=== PATIENT | female | born 1960 | race Caucasian/White ===

== ENCOUNTER → 2017-04-21 | Day surgery (SDC) | payer OTHER ==
--- NOTE | 2017-04-22 14:49 | PATH ---
Surgical Pathology Report Patient Name: PARAMJIT LEON [facility]. Rec. #: [id number] /Age/Gender: 1960 (Age: 56) / F Account: [id number] Location: [facility] Taken: 04/21/2017 Received: 04/21/2017 Reported: 04/22/2017 Physicians: Allyson Stein M.D. Specimen(s) Received A: LEFT BREAST SPECIMEN -SITE 1- UPPER OUTER QUADRANT POSTERIOR WITH CALCIFICATIONS B: LEFT BREAST SPECIMEN -SITE 1- UPPER OUTER QUADRANT POSTERIOR WITHOUT CALCIFICATIONS C: LEFT BREAST SPECIMEN -SITE 2- UPPER OUTER QUADRANT ANTERIOR WITH CALCIFICATIONS D: LEFT BREAST SPECIMEN -SITE 2- UPPER OUTER QUADRANT ANTERIOR WITHOUT CALCIFICATIONS E: RIGHT BREAST SPECIMEN UPPER INNER QUADRANT WITH CALCIFICATIONS F: RIGHT BREAST SPECIMEN UPPER INNER QUADRANT WITHOUT CALCIFICATIONS Clinical History Nonpalpable lesion Mammographic findings: Microcalcification, suspicious Final Diagnosis A. LEFT BREAST, UPPER OUTER QUADRANT POSTERIOR WITH CALCIFICATION, STEREOTACTIC NEEDLE CORE BIOPSY: BENIGN BREAST TISSUE WITH FIBROCYSTIC CHANGES INCLUDING USUAL DUCTAL HYPERPLASIA (UDH), STROMAL FIBROSIS, DUCTAL DILATATION, CYSTIC APOCRINE METAPLASIA, AND ASSOCIATED CALCIFICATION. CHANGES CONSISTENT WITH RUPTURED CYST WITH ASSOCIATED FOREIGN BODY REACTION AND CALCIFICATION PRESENT. B. LEFT BREAST, UPPER OUTER QUADRANT POSTERIOR WITHOUT CALCIFICATION, STEREOTACTIC NEEDLE CORE BIOPSY: COMPLEX SCLEROSING LESION/RADIAL SCAR ARISING IN A BACKGROUND OF FIBROCYSTIC CHANGES INCLUDING USUAL DUCTAL HYPERPLASIA (UDH), STROMAL FIBROSIS, DUCTAL DILATATION, CYSTIC METAPLASIA, AND RARE CALCIFICATION. C. LEFT BREAST, UPPER OUTER QUADRANT ANTERIOR WITH CALCIFICATION, STEREOTACTIC NEEDLE CORE BIOPSY: FOCAL ATYPICAL LOBULAR HYPERPLASIA (ALH) ARISING IN A BACKGROUND OF FIBROCYSTIC CHANGES INCLUDING USUAL DUCTAL HYPERPLASIA (UDH), STROMAL FIBROSIS, DUCTAL DILATATION, CYSTIC METAPLASIA, AND ASSOCIATED CALCIFICATION. D. LEFT BREAST, UPPER OUTER QUADRANT ANTERIOR WITHOUT CALCIFICATION, STEREOTACTIC NEEDLE CORE BIOPSY: BENIGN BREAST TISSUE WITH FIBROCYSTIC CHANGES INCLUDING STROMAL FIBROSIS AND DUCTAL DILATATION. AREA CONSISTENT WITH CYST RUPTURE WITH ASSOCIATED CALCIFICATION PRESENT. E. RIGHT BREAST, UPPER INNER QUADRANT WITH CALCIFICATION, STEREOTACTIC NEEDLE CORE BIOPSY: BENIGN BREAST TISSUE WITH FIBROCYSTIC CHANGES INCLUDING USUAL DUCTAL HYPERPLASIA (UDH), COLUMNAR CELL CHANGE, STROMAL FIBROSIS, DUCTAL DILATATION, AND RARE CALCIFICATION. F. RIGHT BREAST, UPPER INNER QUADRANT WITHOUT CALCIFICATION, STEREOTACTIC NEEDLE CORE BIOPSY: BENIGN BREAST TISSUE FIBROCYSTIC CHANGES INCLUDING USUAL DUCTAL HYPERPLASIA (UDH), STROMAL FIBROSIS, DUCTAL DILATATION, AND ASSOCIATED CALCIFICATION. Comment: Recommend correlation with clinical and radiologic findings and follow up as clinically indicated. Electronically Signed Elbert Eng M.D. Gross Description A. Received in formalin labeled "left breast with calcifications site 1 upper outer quadrant posterior," are 2 winkler, cylindrical portions of fibroadipose tissue averaging 0.9 cm in length and 0.3 cm in diameter. The specimens are submitted in toto in one cassette. B. Received in formalin labeled "left breast without calcifications site 1 upper outer quadrant posterior," are 13 winkler-yellow, cylindrical portions of fibroadipose tissue ranging from 0.8-1.1 cm in length and averaging 0.3 cm in diameter. The specimens are entirely submitted in 2 cassettes. C. Received in formalin labeled "left breast with calcifications site 2 upper outer anterior," are 2 winkler-yellow, cylindrical portions of fibroadipose tissue averaging 2.1 cm in length and 0.2 cm in diameter. The specimens are submitted in toto in one cassette. D. Received in formalin labeled "left breast without calcifications site 2 upper outer anterior," are 6 winkler-yellow, cylindrical portions of fibroadipose tissue ranging from 2.0-2.5 cm in length and averaging 0.2 cm in diameter. The specimens are submitted in toto in one cassette. E. Received in formalin labeled "right breast with calcifications upper inner," are 6 winkler-yellow, cylindrical portions of fibroadipose tissue ranging from 0.5-3.5 cm in length and averaging 0.2 cm in diameter. The specimens are submitted in toto in one cassette. F. Received in formalin labeled "right breast without calcifications upper inner," are 3 winkler-yellow, cylindrical portions of fibroadipose tissue ranging from 1.5-2.1 cm in length and averaging 0.2 cm in diameter. The specimens are submitted in toto in one cassette. _Time to formalin fixation: 5 minutes Total formalin fixation time: Approximately 7 hours. _ [id number]/201704/21/2017
--- NOTE | 2017-05-04 15:53 | OP ---
DATE OF OPERATION: 04/21/2017 PREOPERATIVE DIAGNOSIS: Bilateral abnormal mammography. POSTOPERATIVE DIAGNOSIS: Bilateral abnormal mammography. PROCEDURE: Left breast stereotactic needle biopsy with clip x2 and a right breast stereotactic needle biopsy with clip. SURGEON: Allyson Epperson M.D. ANESTHESIA: Local. COMPLICATIONS: None. This is a sterile procedure. INDICATION FOR PROCEDURE: Patient was brought in to screening mammography and noted 2 areas of microcalcifications in the upper outer left breast, 1 posterior and 1 anterior, as well as in the upper inner right breast. A needle biopsy of all of these was recommended. The procedure was discussed including for the clip. DESCRIPTION OF PROCEDURE: Patient was brought to [facility] at [place], laid prone on the OR table. First the calcifications in the upper outer left breast posteriorly were identified. A sterile prep was obtained. A target was chosen. There was a positive stroke margin. Using Betadine and 1% lidocaine, an 8-gauge Suros device was used to take several cores from this area. Cores with calcifications . These were handled with usual calcification protocol. Next more anterior site of calcifications in the upper outer left breast were identified. A sterile prep was obtained. A target was chosen. There was a positive stroke margin. Using Betadine and 1% lidocaine, an 8-gauge Suros device was used to take several cores from this area. Cores were sent to pathology in formalin. A clip was deployed in the area. A cylindrical shaped clip was deployed in the posterior area and a T-shaped clip in the anterior area. The patient was then repositioned. Both areas were cleaned and incisions were closed with Steri-Strips. The patient was then repositioned and then the right upper inner calcifications were identified. A sterile prep was obtained. A target was chosen. There was a positive stroke margin. Using Betadine and 1% lidocaine, an 8-gauge Suros device was used to take several cores from this area. Cores with calcifications were within them. These were handled using calcification protocol. A clip was deployed in the area which was a T-shaped metallic marker. Hemostasis was assured with direct pressure. The incision was closed with Steri-Strips. She tolerated the procedure well and left the breast imaging center in good condition. ALLYSON EPPERSON M.D. [id number]
== END | disposition home or self-care (01) ==
LOC: FMAMMOTONE 09:19
PROVIDERS: ATTEND Surgery
PROC: 0HBU3ZX Excision of Left Breast, Percutaneous Approach, Diagnostic (ICD-10-PCS; principal; 2017-04-21)
DX: N60.32 Fibrosclerosis of left breast (principal); R92.1 Mammographic calcification found on diagnostic imaging of breast; N60.82 Other benign mammary dysplasias of left breast; N64.89 Other specified disorders of breast; N60.12 Diffuse cystic mastopathy of left breast; N62 Hypertrophy of breast
CPT/HCPCS: 19081; 19082; 87899; 88305-TC; A4648

== ENCOUNTER 2017-05-28 06:55 | Day surgery (SDC) | payer OTHER ==
[2017-05-27 14:24] VITALS: BMI 21.6
[~2017-05-28 06:55] MED LIST: LIDOCAINE HCL 1%, 10 MG/ML (20ML VIAL) PNB ONE
[2017-05-28] MEDS ORDERED: LIDOCAINE HCL 1%, 10 MG/ML (20ML VIAL) ONE (08:50)
--- NOTE | 2017-05-28 09:33 | HP ---
History & Physical Update - History History: No Change - Physical Physical: No Change - Assessment Assessment: No Change - Plan Plan: No Change
[2017-05-28] MEDS ORDERED: MIDAZOLAM HCL 2 MG/2 ML SINGLE DOSE VIAL ONE (09:45)
[2017-05-28] MEDS ORDERED: PROPOFOL 20 ML ONE (09:48)
[2017-05-28] MEDS ORDERED: SUCCINYLCHOLINE CHLORIDE 200 MG/10 ML VIAL ONE (09:48)
[2017-05-28] MEDS ORDERED: ceFAZolin SODIUM 1 GM VIAL ONE (10:02)
[2017-05-28] MEDS ORDERED: DEXAMETHASONE SOD PHOSPHATE 4 MG/1 ML VIAL ONE (10:03)
[2017-05-28] MEDS ORDERED: ONDANSETRON 4 MG/2 ML VIAL IVPUSH PRN (11:04)
[2017-05-28] MEDS ORDERED: oxyCODONE HCL 5 MG TABLET PO PRN (11:04)
[2017-05-28] MEDS ORDERED: PROMETHAZINE HCL 25 MG/1 ML VIAL IVPUSH PRN (11:04)
[2017-05-28] MEDS ORDERED: LACTATED RINGERS SOLUTION 1,000 ML IV SCH (11:15)
--- NOTE | 2017-05-28 12:44 | OP ---
DATE OF OPERATION: 05/28/2017 PREOPERATIVE DIAGNOSIS: Left breast atypia x2. POSTOPERATIVE DIAGNOSIS: Left breast atypia x2. PROCEDURE: Left breast wire-localized lumpectomy x2. SURGEON: Allyson Stein MD ANESTHESIA: General. ESTIMATED BLOOD LOSS: Minimal. COMPLICATIONS: None. This was a sterile procedure. INDICATIONS FOR PROCEDURE: Patient had a screening mammogram that noted clustered microcalcifications in 2 areas in the upper outer left breast and 1 in the right breast. I did a needle biopsy of all 3 of the areas. came back with fibrocystic changes, the left posterior was a radial scar and the anterior was atypical lobular hyperplasia. My recommendation was excision of the 2 areas on the left to make sure there is no further upgrade in the lesion. The procedure was discussed with all the questions answered. PROCEDURE IN DETAIL: [facility] to [facility] in [place], taken down to breast imaging where wire was used to localize the clip that is posterior and anterior from the recent biopsy on the left upper outer quadrant. She was then brought to the operating room, and after induction of general anesthesia and IV antibiotics, the left breast was prepped and draped in the usual sterile fashion. First, I did the posterior lumpectomy area. A curvilinear incision was made in the outer quadrant of the left breast, and the wire was used as a guide to get down to the area. This was excised en bloc and tacked with long suture lateral, short suture superior. Sent as a left breast lumpectomy for specimen radiograph. The specimen radiograph showed the clip and wire to be intact within the specimen. This was then sent to Pathology for permanent section. Next a more anterior lumpectomy was performed. A periareolar incision was made tin the upper outer left breast, and the wire was used as a guide to get down to the area of interest. This was excised en bloc, tacked with long suture lateral, short suture superior, and sent for specimen radiograph. Hemostasis was assured with electrocautery. The specimen radiograph showed the clip and wire to be intact within the specimen. This was sent to Pathology for permanent section. Once hemostasis was assured, both incisions were closed in a routine fashion with interrupted 2-0 Vicryl, then interrupted 3-0 Vicryl, and 4-0 Prolene. A sterile dressing with Steri-Strips and Tegaderm was applied as well as a mammary binder. She tolerated the procedure well, was extubated on the operating room table, and taken to recovery in good condition. [id number]
[2017-05-28 14:02] VITALS: PULSE 70; TEMP 97.8
[2017-05-28 14:16] VITALS: BP 112/64
--- NOTE | 2017-06-01 18:02 | PATH ---
Surgical Pathology Report Patient Name: PARAMJIT LEON [facility]. Rec. #: [id number] /Age/Gender: 1960 (Age: 57) / F Account: [id number] Location: [facility] SURGICAL Taken: 05/28/2017 Received: 05/28/2017 Reported: 06/01/2017 Physicians: Allyson Stein M.D. Specimen(s) Received A: LEFT BREAST MASS POSTERIOR B: LEFT BREAST MASS ANTERIOR Clinical History None given Final Diagnosis A. BREAST, LEFT, POSTERIOR, LUMPECTOMY: ATYPICAL LOBULAR HYPERPLASIA IN A BACKGROUND OF PROLIFERATIVE FIBROCYSTIC CHANGES INCLUDING STROMAL FIBROSIS, MICROCYSTS, APOCRINE METAPLASIA, USUAL DUCTAL HYPERPLASIA, SCLEROSING ADENOSIS, AND ASSOCIATED MICROCALCIFICATIONS. CHANGES OF PRIOR BIOPSY PRESENT. B. BREAST, LEFT, ANTERIOR, LUMPECTOMY: BENIGN BREAST TISSUE WITH PROLIFERATIVE FIBROCYSTIC CHANGES INCLUDING STROMAL FIBROSIS, MICROCYSTS, USUAL DUCTAL HYPERPLASIA, SCLEROSING ADENOSIS, AND ASSOCIATED MICROCALCIFICATIONS. CHANGES OF PRIOR BIOPSY PRESENT. Comment: Immunohistochemical stain performed and interpreted at [facility] for E-cadherin was utilized evaluate this case. Electronically Signed Cassidy Crabtree M.D. Gross Description A. Received fresh on an AccuGrid, labeled "left breast wide localized lumpectomy posterior," is a 4.2 x 2.6 x 1.5 cm. winkler-yellow, irregular, portion of fibroadipose tissue with a needle localization wire present. There is a short suture marking the superior aspect and a long suture marking the lateral aspect, per the surgeon. There is no skin or nipple present. The specimen is inked as follows: superior and lateral blue; inferior green; medial yellow; anterior red; deep black. The specimen is serially sectioned from medial to lateral. Sectioning reveals a hemorrhagic previous biopsy cavity. The remaining breast parenchyma displays diffuse dense, white fibrocystic tissue. No definitive mass is identified. The specimen is entirely and sequentially submitted in 10 cassettes with the medial margin in cassette 1, the lateral margin in cassette 10 and the previous biopsy site in cassettes 3-7. B. Received fresh on an AccuGrid, labeled "left breast lumpectomy anterior," is a 4.4 x 3.6 x 1.6 cm. winkler-yellow, irregular, portion of fibroadipose tissue with a needle localization wire present. There is a short suture marking the superior aspect and a long suture marking the lateral aspect, per the surgeon. There is no skin or nipple present. The specimen is inked as follows: superior and lateral blue; inferior green; medial yellow; anterior red; deep black. The specimen is serially sectioned from medial to lateral. Sectioning reveals diffuse dense white fibrous tissue with a focus of hemorrhage containing a campoverde metallic biopsy. No definitive mass is identified. The specimen is entirely and sequentially submitted in 13 cassettes with medial margin cassette 1, the lateral margin in cassette 13 and the biopsy clip in cassette 9 (one bisected section each in cassettes 4/5, 6/7, 8/9). Total formalin fixation time: Approximately 11 hours 05/28/201705/28/2017
== END 2017-05-28 13:15 | disposition home or self-care (01) ==
LOC: JASU-SURG 06:55
PROVIDERS: ATTEND Surgery
PROC: 0HBU0ZZ Excision of Left Breast, Open Approach (ICD-10-PCS; principal; 2017-05-28 09:00)
DX: N60.22 Fibroadenosis of left breast (principal); N60.92 Unspecified benign mammary dysplasia of left breast; N60.12 Diffuse cystic mastopathy of left breast
CPT/HCPCS: 19281; 19282; 88307-TC; 88342-TC; 94760